=== PATIENT | male | born 1970 | race African-American/Black ===

== ENCOUNTER 2018-07-14 04:44 | Emergency (ER) | payer MEDICAID ==
[~2018-07-14] VITALS: Ht 175.3 cm; Wt 61.0 kg
[2018-07-14] MEDS ORDERED: IBUPROFEN 600MG TABLET PO STA (06:56)
[2018-07-14] MEDS ORDERED: BACITRACIN ZINC OINT UDPKT TOP ONE (07:00)
[2018-07-14] MEDS ORDERED: ACETAMINOPHEN 325MG TABLET PO STA (07:40)
[2018-07-14 07:54] VITALS: BP 118/81
== END 2018-07-14 08:43 | disposition home or self-care (01) ==
LOC: ER 04:44
DX: S01.01XA Laceration without foreign body of scalp, initial encounter (principal); F12.10 Cannabis abuse, uncomplicated; W51.XXXA Accidental striking against or bumped into by another person, initial encounter; Y93.89 Activity, other specified; Y92.89 Other specified places as the place of occurrence of the external cause; Y99.8 Other external cause status
CPT/HCPCS: 12011; 99283; Z7610

== ENCOUNTER 2018-07-31 10:42 | Emergency (ER) | payer SELFPAY ==
[~2018-07-31] VITALS: Ht 175.3 cm; Wt 73.0 kg
[2018-07-31 11:05] VITALS: BP 140/70
== END 2018-07-31 11:14 | disposition home or self-care (01) ==
LOC: ER 11:13
DX: Z48.02 Encounter for removal of sutures (principal)
CPT/HCPCS: 99282

== ENCOUNTER 2020-04-06 02:49 | Emergency (ER) | payer SELFPAY ==
[~2020-04-06] VITALS: Ht 175.3 cm; Wt 80.0 kg
[2020-04-06 04:13] LABS: BASOPHILS % 0.5 % (0.0-2.0); EOSINOPHILS % 1.5 % (0.0-5.0); HEMOGLOBIN. 16.9 g/dL (14.0-18.0); LYMPHOCYTES % 38.7 % (20.0-50.0); MEAN CORPUSCULAR HEMOGLOBIN 29.2 pg (28.0-32.0); MEAN CORPUSCULAR VOLUME 87.9 fL (80.0-94.0); MONOCYTES % 7.6 % (2.0-8.0); NEUTROPHILS % 51.7 % (40.0-76.0); PLATELET 277 x1000/uL (130-400); RED CELL DISTRIBUTION WIDTH 13.3 % (11.6-14.6)
[2020-04-06 04:15] LABS: CHLORIDE 107 mEq/L (98-107)
[2020-04-06] MEDS ORDERED: SODIUM CHLORIDE 0.9% 1,000 ML IV ONE (04:15)
[2020-04-06 04:19] LABS: ETHANOL BLOOD 222 mg/dL
[2020-04-06 04:28] LABS: INR 1.2
[2020-04-06] MEDS ORDERED: IOHEXOL-300 100 ML BOTTLE ONE (06:52)
[2020-04-06 07:20] VITALS: BP 142/74
== END 2020-04-06 11:16 | disposition home or self-care (01) ==
LOC: ER 03:03
DX: R10.13 Epigastric pain (principal); F12.10 Cannabis abuse, uncomplicated
CPT/HCPCS: 36415; 74177; 80053; 80320; 83690; 85025; 85610; 93005; 96360; 99285; J7030; Q9967; G0480